=== PATIENT | male | born 2000 | race Caucasian/White ===

== ENCOUNTER → 2020-08-18 13:46 | Outpatient (BNVA) | payer BC, SELFPAY | PROVIDERS: Family Provider Pediatrics; Visit Provider Nurse Practitioner | DX: Z20.828 Contact with and (suspected) exposure to other viral communicable diseases (principal) | CPT/HCPCS: 87635 ==

== ENCOUNTER 2020-12-25 12:00 | Outpatient (CLI) | payer BC, SELFPAY | END 2020-12-25 12:01 | disposition home or self-care (01) | LOC: SLEEP 12-26 12:47 | PROVIDERS: Family Provider Pediatrics; Visit Provider Nurse Practitioner Family | DX: G47.30 Sleep apnea, unspecified (principal) | CPT/HCPCS: G0399 ==